=== PATIENT | male | born 1930 | race Caucasian/White ===

== ENCOUNTER 2017-01-04 04:05 | Emergency (ER) | payer MEDICARE, BC, MEDICAID ==
[~2017-01-04 04:05] MED LIST: HYDROmorphone 0.5 MG/0.5 ML Syringe ONE; Ketorolac 30 MG/ML SDV ONE; LORazepam 2 MG/ML MDV ONE; Metoclopramide 10 MG/2 ML SDV ONE
[2017-01-04 04:14] VITALS: BP 148/93
--- NOTE | 2017-01-04 04:23 | EDM.PDOC ---
ED HPI RENAL/ - General Chief Complaint: Genitourinary Problem Stated Complaint: [facility] Time Seen by Provider: 01/04/17 04:17 Source of Information: Reports: Patient, EMS notes reviewed, [facility] records History Limitations: Reports: No limitations - History of Present Illness INITIAL COMMENTS - FREE TEXT/NARRATIVE: A 6-year-old male transferred from [facility] due to to paralytic bleeding of bright red blood per urethra. Patient has a chronic indwelling Brock catheter and was noted to have bright red blood and clots coming around the catheter at the urethral meatus tonight as well as bright red blood in the drainage bag. Started approximately 8:30 last night and has continued. This is unchanged a Brock catheter and bleeding continues. I was able to express a large amount of blood and clot from the penile urethra just on palpation around the catheter site. He has no history of bladder carcinoma. History of benign prostatic hypertrophy and neurogenic bladder. He is not on any blood thinners. He takes aspirin daily. Comorbid illnesses are that of chronic significant congestive heart failure with ischemic cardiomyopathy. History of major fibrillation controlled with digoxin. Essential hypertension. Severe osteoarthritis involving particularly his left hip for which she requires intermittent steroid injections. Symptom Onset Date: 01/03/17 Symptom Onset Time: 20:30 Timing/Duration: Reports: Hour(s):, Sudden onset Location: Reports: other (Bleeding around the catheter through the penis. Bright red blood with clots.) Quality: Reports: cramping Severity: moderate Improves with: Reports: other (Nothing makes it better or worse.) Context: Reports: other (Chronic indwelling Brock catheter.). Denies: sick contact, recent surgery, recent trauma, lifting, activity/exercise Associated Symptoms: Reports: abdominal pain (Plans is feeling of fullness in the lower abdomen.) Treatments VIDEO NEWS EDITOR: Reports: Urinary catheter in place, Other (see below) (None.) - Related Data Allergies/ADRs: Allergies Allergy/AdvReac Type Severity Reaction Status Date / Time ibuprofen Allergy Cannot Verified 01/04/17 04:10 Remember Sulfa (Sulfonamide AdvReac Elevated Verified 01/04/17 04:10 Antibiotics) Blood Glucose Home Meds: Home Meds Aspirin [Halfprin] 81 mg PO DAILY 05/21/14 [History] Cholecalciferol (Vitamin D3) [Vitamin D] 2,000 unit PO DAILY 05/21/14 [History] Digoxin [Lanoxin] 125 mcg PO DAILY 05/21/14 [History] Vitamin B Complex 1 cap PO DAILY 05/21/14 [History] Vitamin E 400 unit PO DAILY 05/21/14 [History] Acetaminophen [Tylenol] 650 mg PO Q6H 01/16/16 [History] Calcium Carbonate [Tums] 200 mg PO DAILY PRN 01/16/16 [History] Furosemide [Lasix] 80 mg PO DAILY 01/16/16 [History] Metolazone [Zaroxolyn] 2.5 mg PO Q48H 01/16/16 [History] Polyvinyl Alcohol/Povidone/Pf [Refresh Classic Eye Drops] 1 drop EYEBOTH TID [History] Potassium Chloride [Klor-Con M20] 40 meq PO BID 01/16/16 [History] Tamsulosin [Flomax] 0.8 mg PO BEDTIME 01/16/16 [History] traMADol [Ultram] 100 mg PO Q6H 01/16/16 [History] Ascorbate Calcium [Vitamin C] 500 mg PO DAILY 01/04/17 [History] Bisacodyl [Dulcolax] 10 mg RECTAL DAILY PRN 01/04/17 [History] Docusate Sodium/Sennosides [Senna Plus] 1 tab PO BID 01/04/17 [History] Levothyroxine [Synthroid] 88 mcg PO DAILY 01/04/17 [History] Oseltamivir [Tamiflu] 75 mg PO DAILY 01/04/17 [History] Polyvinyl Alcohol/Povidone/Pf [Refresh Classic Eye Drops] 2 drop EYEBOTH Q2H PRN 01/04/17 [History] Sennosides [Senna] 2 tab PO DAILY PRN 01/04/17 [History] Past Medical History HEENT History: Reports: Impaired vision Cardiovascular History: Reports: CAD, Cardiomyopathy (Ischemic.), Heart Failure , Hypertension, Pacemaker, SOB on exertion Other Cardiovascular History: pacemaker. Genitourinary History: Reports: BPH, Prostate disorder, Other (see below) ( Chronic Brock catheterization to to neurogenic bladder and obstruction.) Musculoskeletal History: Reports: None, Osteoarthritis Psychiatric History: Reports: Anxiety Social & Family History - Tobacco Use Smoking Status *Q: Never Smoker Second Hand Smoke Exposure: No - Alcohol Use Days Per Week of Alcohol Use: 0 - Recreational Drug Use Recreational Drug Use: No Drug Use in Last 12 Months: No - Living Situation & Occupation Living situation: Reports: extended care facility (Currently resides at [facility].) 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 Denies: Wheezing, Pleuritic Chest Pain (Findings are), Cough, Sputum Cardiovascular: Reports: Blood pressure problem, Dyspnea on exertion (Lower chimney), Edema. Denies: Chest pain, Claudication (Chronic hypertension), Lightheadedness, Orthopnea Endocrine: Reports: fatigue GI/Abdominal: Reports: Abdominal pain, Constipation, Decreased appetite : Reports: urinary retention (Has had an indwelling Brock catheter for many years.) Musculoskeletal: Reports: back pain, joint pain (Both hips particular left hip that requires intermittent steroid injections.) Skin: Reports: no symptoms Neurological: Reports: No Symptoms Psychiatric: Reports: Anxiety Hematologic/Lymphatic: Reports: no symptoms Immunologic: Reports: no symptoms ED EXAM, RENAL/ - Physical Exam Exam: See Below Exam Limited By: No limitations General Appearance: alert, WD/WN, anxious, mild distress Eye Exam: bilateral eye: PERRL Throat/Mouth: Normal inspection, Normal oropharynx. No: Normal teeth Head: atraumatic, normocephalic Neck: normal inspection, supple, non-tender, full range of motion. No: carotid bruit, lymphadenopathy (L), lymphadenopathy (R) Respiratory/Chest: no respiratory distress, decreased breath sounds (Diminished breath sounds the lower 30% of lung jasmine bilaterally.), rales (Faint rales left lung base.). No: respiratory distress Cardiovascular: no gallop, no murmur, no rub, irregularly irregular. No: normal peripheral pulses GI/Abdominal: distended (Firm to palpation and distended tympany to percussion lower abdomen firm and dull to percussion upper abdomen.), hernia (Ventral hernia to the left inferior aspect of the umbilicus.) (Male) Exam: Other (Brock catheter in place. Moe blood and clot loose from around the catheter on palpation of the penis. Foreskin is easily retractable. Blood is bright red and partially clotted.) Extremities: other (Limited range of motion of knees and hips to severe arthritis.) Neurological: alert, oriented, CN II-XII intact, normal cognition Psychiatric: normal affect Skin Exam: Warm, Dry, Intact, Normal color, No rash EKG INTERPRETATION EKG Date: 01/04/17 Time: 04:40 Rhythm: a-fib Rate (beats/min): 97 [place]: normal P-wave: absent QRS: other (There are near Q waves in leads V1 and V2 suggestive of old anteroseptal myocardial infarction. Decreased voltage stroke the limb leads.) ST-T: other (ST depression in lead V6 only. T-wave inversion in leads one and aVL) QT: prolonged NE/PQ Interval: Borderline repolarization abnormality. Course - Vital Signs Last Recorded V/S: Last Vital Signs Temp 36.5 C 01/04/17 04:10 Pulse 87 01/04/17 04:10 Resp 16 01/04/17 04:10 BP 148/93 H 01/04/17 04:10 Pulse Ox 97 01/04/17 04:10 - Orders/Labs/Meds Orders: Active Orders 24 hr Category Date Time Status EKG Documentation Completion [RC] STAT Care 01/04/17 04:31 Active EKG Documentation Completion [RC] STAT Care 01/04/17 04:32 Active Insert Brock Catheter [Insert Urinary Catheter] [OM.PC] Care 01/04/17 04:30 Ordered Q24H Peripheral IV Care [RC] . DIRECTED Care 01/04/17 06:25 Active Urinary Catheter Assessment [RC] ASDIRECTED Care 01/04/17 04:21 Active Chest 1V Frontal [CR] Stat Exams 01/04/17 04:31 Taken HYDROmorphone [Dilaudid] Med 01/04/17 07:24 Once 0.5 mg IVPUSH ONETIME ONE Ondansetron [Zofran] Med 01/04/17 07:24 Once 4 mg IVPUSH ONETIME ONE Potassium Chloride [KCl 10 MEQ in Water 100 ML] 10 meq Med 01/04/17 06:40 Active Premix Bag 1 bag IV ONETIME Sodium Chloride 0.9% [Saline Flush] Med 01/04/17 06:25 Active 10 ml FLUSH ASDIRECTED PRN Peripheral IV Insertion Adult [OM.PC] Stat Oth 01/04/17 06:25 Ordered Medication Orders Potassium Chloride 10 meq/ (Premix) 100 mls @ 100 mls/hr IV ONETIME ONE Stop: 01/04/17 07:39 Last Admin: 01/04/17 06:45 Dose: 100 mls/hr Sodium Chloride (Saline Flush) 10 ml FLUSH ASDIRECTED PRN PRN Reason: Keep Vein Open Last Admin: 01/04/17 06:47 Dose: 10 ml Labs: Laboratory Tests 01/04/17 01/04/17 01/04/17 Range/Units 04:50 04:50 04:50 WBC 9.70 H (4.23-9.07) K/mm3 RBC 4.06 L (4.63-6.08) M/mm3 Hgb 13.3 L (13.7-17.5) gm/L Hct 39.7 L (40.1-51.0) % MCV 97.8 H (79.0-92.2) fl MCH 32.8 H (25.7-32.2) pg MCHC 33.5 (32.2-35.5) g/dl RDW Std Deviation 49.4 H (35.1-43.9) fL Plt Count 178 (163-337) K/mm3 MPV 11.5 (9.4-12.3) fl Neutrophils % (Manual) 54 (40-60) % Band Neutrophils % 0 (0-10) % Lymphocytes % (Manual) 36 (20-40) % Atypical Lymphs % 0 % Monocytes % (Manual) 5 (2-10) % Eosinophils % (Manual) 4 (0.8-7.0) % Basophils % (Manual) 1 (0.2-1.2) Platelet Estimate Adequate RBC Morph Comment Normal PT 10.7 (8.0-13.0) SECONDS INR 0.98 APTT 25 (22-36) SECONDS Sodium 137 (136-145) mEq/L Potassium 3.2 L (3.5-5.1) mEq/L Chloride 97 L (98-107) mEq/L Carbon Dioxide 32 (21-32) mEq/L Anion Gap 11.2 (5-15) BUN 14 (7-18) mg/dL Creatinine 0.8 (0.7-1.3) mg/dL Est Cr Clr Drug Dosing 73.52 mL/min Estimated GFR (MDRD) > 60 (>60) mL/min BUN/Creatinine Ratio 17.5 (14-18) Glucose 104 (83-115) mg/dL Calcium 9.0 (8.5-10.1) mg/dL Total Bilirubin 0.6 (0.2-1.0) mg/dL AST 24 (15-37) U/L ALT 25 (16-63) U/L Alkaline Phosphatase 79 (46-116) U/L B-Natriuretic Peptide (0-100) pg/mL Total Protein 7.1 (6.4-8.2) g/dl Albumin 3.5 (3.4-5.0) g/dl Globulin 3.6 gm/dL Albumin/Globulin Ratio 1.0 (1-2) Urine Color (Yellow) Urine Appearance (Clear) Urine pH (5.0-8.0) Ur Specific [place] (1.005-1.030) Urine Protein (Negative) Urine Glucose (UA) (Negative) Urine Ketones (Negative) Urine Occult Blood (Negative) Urine Nitrite (Negative) Urine Bilirubin (Negative) Urine Urobilinogen (0.2-1.0) Ur Leukocyte Esterase (Negative) Urine RBC (0-5) /hpf Urine WBC (0-5) /hpf Ur Epithelial Cells (0-5) /hpf Urine Bacteria (FEW) /hpf Urine Mucus (FEW) /hpf Digoxin (0.9-2.0) ng/mL 01/04/17 01/04/17 01/04/17 Range/Units 04:50 04:50 04:58 WBC (4.23-9.07) K/mm3 RBC (4.63-6.08) M/mm3 Hgb (13.7-17.5) gm/L Hct (40.1-51.0) % MCV (79.0-92.2) fl MCH (25.7-32.2) pg MCHC (32.2-35.5) g/dl RDW Std Deviation (35.1-43.9) fL Plt Count (163-337) K/mm3 MPV (9.4-12.3) fl Neutrophils % (Manual) (40-60) % Band Neutrophils % (0-10) % Lymphocytes % (Manual) (20-40) % Atypical Lymphs % % Monocytes % (Manual) (2-10) % Eosinophils % (Manual) (0.8-7.0) % Basophils % (Manual) (0.2-1.2) Platelet Estimate RBC Morph Comment PT (8.0-13.0) SECONDS INR APTT (22-36) SECONDS Sodium (136-145) mEq/L Potassium (3.5-5.1) mEq/L Chloride (98-107) mEq/L Carbon Dioxide (21-32) mEq/L Anion Gap (5-15) BUN (7-18) mg/dL Creatinine (0.7-1.3) mg/dL Est Cr Clr Drug Dosing mL/min Estimated GFR (MDRD) (>60) mL/min BUN/Creatinine Ratio (14-18) Glucose (83-115) mg/dL Calcium (8.5-10.1) mg/dL Total Bilirubin (0.2-1.0) mg/dL AST (15-37) U/L ALT (16-63) U/L Alkaline Phosphatase (46-116) U/L B-Natriuretic Peptide 35 (0-100) pg/mL Total Protein (6.4-8.2) g/dl Albumin (3.4-5.0) g/dl Globulin gm/dL Albumin/Globulin Ratio (1-2) Urine Color Red H (Yellow) Urine Appearance Cloudy H (Clear) Urine pH 7.0 (5.0-8.0) Ur Specific [place] 1.025 (1.005-1.030) Urine Protein 3+ H (Negative) Urine Glucose (UA) Negative (Negative) Urine Ketones Negative (Negative) Urine Occult Blood 3+ H (Negative) Urine Nitrite Negative (Negative) Urine Bilirubin Negative (Negative) Urine Urobilinogen 0.2 (0.2-1.0) Ur Leukocyte Esterase Negative (Negative) Urine RBC Too numerous to cnt H (0-5) /hpf Urine WBC 0-5 (0-5) /hpf Ur Epithelial Cells Not seen (0-5) /hpf Urine Bacteria Few (FEW) /hpf Urine Mucus Not seen (FEW) /hpf Digoxin 0.5 L (0.9-2.0) ng/mL Meds: Medications Generic Name Dose Route Start Last Admin Trade Name Mainor PRN Reason Stop Dose Admin Potassium Chloride 10 meq/ 100 mls @ 100 mls/hr 01/04/17 06:40 01/04/17 06:45 Premix IV 01/04/17 07:39 100 mls/hr ONETIME ONE Administration Sodium Chloride 10 ml 01/04/17 06:25 01/04/17 06:47 Saline Flush FLUSH 10 ml ASDIRECTED PRN Administration Keep Vein Open Discontinued Medications Generic Name Dose Route Start Last Admin Trade Name Mainor PRN Reason Stop Dose Admin Potassium Chloride 10 meq/ 100 mls @ 100 mls/hr 01/04/17 06:30 Premix IV ASDIRECTED [place] - Radiology Interpretation Free Text/Narrative:: 86-year-old male presents the ED with fairly vigorous bright red blood and clots oozing around his Brock catheter site. Peers he has an active hemorrhage from within his bladder. He has a chronic indwelling Brock catheter for any years because of BPH and obstruction. No history of bladder carcinoma. He is not on any anticoagulants. He does take aspirin daily. He is a chronic atrial fibrillation with controlled rate. Plan I will try to place a three-way Brock catheter with blood irrigation to see if we can control the bleeding. He has a history of significant congestive heart failure therefore blood irrigation for a prolonged period of time is relatively contraindicated. Coags to be checked. CBC CMP and BNP ordered. - Re-Assessments/Exams Free Text/Narrative Re-Assessment/Exam: 01/04/17 06:50: Lab work reveals a total white count of 9.70 with 54% neutrophils and no bands. Hemoglobin is 13.3 with hematocrit of 39.7. Platelets are 178,000. Coags revealed a PT of 10.7 INR is 0.98. PTT is 25. Chemistry is normal other than a low potassium at 3.2. BNP is 35 anion gap is 11.2. The urine showed too numerous to count red cells but no signs of any infection. I will give him 10 mg of potassium IV in case he goes to the operating room today. 01/04/17 07:00: 22 [place] three-way Brock catheter placed by me. Unfortunately the catheter has clotted 3 times required irrigation to suck out further clots. He should is running at nearly open to provide a reddish return. .Bleeding seems to still be fairly active. I will therefore contact urology services at [facility] for definitive management since we are on diversion the patient is going to require hospitalization. Spoke with Dr. Mcknight urologist at [facility] in [facility] and then Dr. Dalton hospitalist who has accepted care of this patient. Patient be transferred to that hospital per ground ambulance. 01/04/17 07:27 patient is having more pain in this post time. He usually takes a pain pill every 6 hours. Last pain medicine was given admit midnight. 0.5 mg IV with 4 mg of Zofran IV for pain relief and to help with the trip to [place]. Departure - Departure Time of Disposition: 07:28 Disposition: DC/Tfer to Acute Hospital 02 Condition: fair Clinical Impression: Gross hematuria Complication of Brock catheter Qualifiers: Encounter type: initial encounter Qualified Code(s): T83.9XXA - Unspecified complication of genitourinary prosthetic device, implant and graft, initial encounter Forms: ED Department Discharge Additional Instructions: Travel to [place] to be admitted to [facility] for urology consultation and management of aggressive bleeding per urethra. - My Orders Last 24 Hours: My Active Orders 01/04/17 04:21 Urinary Catheter Assessment [RC] ASDIRECTED 01/04/17 04:30 Insert Brock Catheter [Insert Urinary Catheter] [OM.PC] Q24H 01/04/17 04:31 EKG Documentation Completion [RC] STAT Chest 1V Frontal [CR] Stat 01/04/17 04:32 EKG Documentation Completion [RC] STAT 01/04/17 06:25 Peripheral IV Care [RC] . DIRECTED Sodium Chloride 0.9% [Saline Flush] 10 ml FLUSH ASDIRECTED PRN Peripheral IV Insertion Adult [OM.PC] Stat 01/04/17 06:40 Potassium Chloride [KCl 10 MEQ in Water 100 ML] 10 meq Premix Bag 1 bag IV ONETIME 01/04/17 07:24 HYDROmorphone [Dilaudid] 0.5 mg IVPUSH ONETIME ONE Ondansetron [Zofran] 4 mg IVPUSH ONETIME ONE - Assessment/Plan Last 24 Hours: My Active Orders 01/04/17 04:21 Urinary Catheter Assessment [RC] ASDIRECTED 01/04/17 04:30 Insert Brock Catheter [Insert Urinary Catheter] [OM.PC] Q24H 01/04/17 04:31 EKG Documentation Completion [RC] STAT Chest 1V Frontal [CR] Stat 01/04/17 04:32 EKG Documentation Completion [RC] STAT 01/04/17 06:25 Peripheral IV Care [RC] . DIRECTED Sodium Chloride 0.9% [Saline Flush] 10 ml FLUSH ASDIRECTED PRN Peripheral IV Insertion Adult [OM.PC] Stat 01/04/17 06:40 Potassium Chloride [KCl 10 MEQ in Water 100 ML] 10 meq Premix Bag 1 bag IV ONETIME 01/04/17 07:24 HYDROmorphone [Dilaudid] 0.5 mg IVPUSH ONETIME ONE Ondansetron [Zofran] 4 mg IVPUSH ONETIME ONE
[2017-01-04] MEDS ORDERED: Sodium Chloride 0.9% 10 ML Syringe FLUSH PRN (06:25)
[2017-01-04] MEDS ORDERED: Potassium Chloride 10 MEQ in Premix Bag 1 BAG IV SCH (06:30)
[2017-01-04] MEDS ORDERED: Potassium Chloride 10 MEQ in Premix Bag 1 BAG IV ONE (06:40)
[2017-01-04] MEDS ORDERED: Ondansetron 4 MG/2 ML SDV IVPUSH ONE (07:24)
[2017-01-04] MEDS ORDERED: HYDROmorphone 0.5 MG/0.5 ML Syringe IVPUSH ONE (07:24)
--- NOTE | 2017-01-04 09:12 | CR ---
Chest: Portable view of the chest was obtained. Comparison: Previous chest CT of 03/22/16, no previous chest x-ray. Heart is enlarged. Tortuous thoracic aorta is seen. Questionable mild pulmonary vascular congestion is present. Large calcification is noted within the spleen. Chronic right-sided pleural effusion is seen. More focal parenchymal density or mass is noted within the right lung base which appears to be stable. Lungs otherwise are clear. Pacemaker is noted. Bony structures are osteopenic. Previous right-sided thoracotomy is seen. Impression: 1. Findings believed to be stable from previous chest CT exam. 2. Cardiomegaly with questionable pulmonary vascular congestion. Diagnostic code #3
== END 2017-01-04 07:55 ==
LOC: SUPCPDRO 04:05 → JD.ED 04:05
DX: T83.83XA Hemorrhage due to genitourinary prosthetic devices, implants and grafts, initial encounter (principal); R31.0 Gross hematuria; I11.0 Hypertensive heart disease with heart failure; I50.9 Heart failure, unspecified; I25.10 Atherosclerotic heart disease of native coronary artery without angina pectoris; M19.90 Unspecified osteoarthritis, unspecified site; F41.9 Anxiety disorder, unspecified; Z79.82 Long term (current) use of aspirin; Z79.899 Other long term (current) drug therapy; Z88.2 Allergy status to sulfonamides; Z88.6 Allergy status to analgesic agent; Z96.0 Presence of urogenital implants
CPT/HCPCS: 36415; 51700; 51702; 51798; 71010; 80053; 80162; 81001; 83880; 85025; 85610; 85730; 93005; 96365; 96375; 99285; J1170; J1885; J2060; J2405; J2765; J3480; J7050